=== PATIENT | female | born 1990 | race Caucasian/White ===

== ENCOUNTER 2020-12-26 14:43 | Emergency (ER) | payer OTHER ==
[2020-12-26] MEDS: Ibuprofen 200 MG Tab PO STA (14:58)
--- NOTE | 2020-12-26 15:21 | EDM.PDOC ---
ED HPI GENERAL MEDICAL PROBLEM - General Stated Complaint: right shoulder injury. Time Seen by Provider: 12/26/20 14:50 Source of Information: Reports: Patient History Limitations: Reports: No Limitations - History of Present Illness INITIAL COMMENTS - FREE TEXT/NARRATIVE: Patient comes emergency department today from home with complaints of right shoulder injury. This patient was drinking alcohol last night when she tried to get out of a [place] and fell landing on her right shoulder. She did not hit her head. There was no loss of consciousness. She has no head neck or back pain. She complains of severe pain to her right shoulder and distal clavicle. She does have some pain radiating down the right arm as well. No paresthesias. It is difficult for her to lift up her arm as it is quite painful. She denies any other injury to her right upper extremity. She has not taken anything for the pain prior to arrival. Right Shoulder Pain Score (Numeric/FACES): 9 - Related Data Allergies Allergy/AdvReac Type Severity Reaction Status Date / Time No Known Drug Allergies Allergy Cannot Verified 12/26/20 16:18 Remember Home Meds: Home Meds Levothyroxine Sodium [Tirosint] 125 mcg PO DAILY 12/26/20 [History] norethindrone ac-eth estradioL [Norethind-Eth Estrad 1-0.02 mg] 1 tab PO DAILY 12/26/20 [History] Past Medical History HEENT History: Reports: Impaired Vision Gastrointestinal History: Reports: None [employer]OR [employer] IMPRESSIONS History: Reports: Endocrine/Metabolic History: Reports: Hypothyroidism - Past Surgical History Head Surgeries/Procedures: Reports: None GI Surgical History: Reports: Appendectomy Dermatological Surgical History: Reports: None Social & Family History - Family History Cardiac: Reports: Other (See Below) Other Cardiac Family History: grandfather has von willebrand, sister had heart issues last year-racing heart. Respiratory: Reports: None GI: Reports: None - Caffeine Use Caffeine Use: Reports: Soda Other Caffeine Use: diet coke occasionally Review of Systems - Review of Systems Review Of Systems: Comprehensive ROS is negative, except as noted in HPI. ED EXAM, GENERAL - Physical Exam Exam: See Below Exam Limited By: No Limitations General Appearance: Alert, WD/WN, No Apparent Distress Respiratory/Chest: No Respiratory Distress Cardiovascular: Normal Peripheral Pulses Peripheral Pulses: 2+: Radial (L), Radial (R) Back Exam: Normal Inspection, Full Range of Motion, Other (Scapula on the right. There is no bruising swelling ecchymosis tenderness or bony deformity). No: CVA Tenderness (L), CVA Tenderness (R), Paraspinal Tenderness, Vertebral Tendern ess Extremities: Normal Capillary Refill. No: Normal Inspection (She has tenderness to the lateral right clavicle without over bony deformity. No swelling of the right shoulder. No swelling of the right shoulder. ARM and PRM is very painful for the patient. Unable to abduct and adduct due to pain. Rest of the arm is unremarkable and atraumatic. ), Normal Range of Motion Neurological: Alert, Oriented, Normal Cognition, No Motor/Sensory Deficits Psychiatric: Normal Affect, Normal Mood Skin Exam: Warm, Dry, Intact, Normal Color Course - Vital Signs Last Recorded V/S: Last Vital Signs Temp 98.4 F 12/26/20 15:00 Pulse 106 H 12/26/20 15:00 Resp 16 12/26/20 15:00 BP 121/91 H 12/26/20 15:00 Pulse Ox 96 12/26/20 15:00 - Orders/Labs/Meds Meds: Medications Discontinued Medications Generic Name Dose Route Start Last Admin Trade Name Freq PRN Reason Stop Dose Admin Ibuprofen 600 mg 12/26/20 14:50 12/26/20 14:58 Ibuprofen 200 Mg Tab PO 12/26/20 14:51 600 mg NOW STA Administration - Radiology Interpretation Free Text/Narrative:: X-ray of the right shoulder per radiology shows borderline widening of the acromial or clavicular interval. Finding is nonspecific can be seen with a low- grade AC injury of the setting of trauma no fracture in the shoulder girdle - Re-Assessments/Exams Free Text/Narrative Re-Assessment/Exam: 12/26/20 Ibuprofen given orally. Initially x-ray reviewed extemporaneously by myself shows questionable AC separation which is consistent with the pattern of where her pain is. I see no fracture of the clavicle scapula humerus or other bony abnormality. Radiological review to follow. I reviewed the x-ray with the patient and my concerns for an AC separation. We will treat her with a sling nonsteroidals and rice therapy. I will contact her if the radiologist sees something differently. Recheck with primary care in a week. Discharge instructions as below are explained to the patient she was comfortable with this plan and her questions were answered. Departure - Departure Time of Disposition: 15:36 Disposition: Home, Self-Care 01 Clinical Impression: AC separation Qualifiers: Encounter type: initial encounter Laterality: right Qualified Code(s): S43.101A - Unspecified dislocation of right acromioclavicular joint, initial encounter - Discharge Information Instructions: RICE Therapy for Routine Care of Injuries, [id number], How To Use a Sling, [id number], Acromioclavicular Separation Referrals: PCP,Not In Area [Primary Care Provider] - Forms: ED Department Discharge Additional Instructions: Tylenol and or Ibuprofen as needed for pain. RICE therapy to the shoulder. See discharge instructions. Sling to the right arm for comfort. May take off to shower. Make sure and take your arm out of the sling and do some range of motion to keep your shoulder loose. Return to the ED if new or worsening symptoms. I will contact you later if anything is different from the radiology report. Follow up with PCP in 1 week for recheck. Sepsis Event Note (ED) - Focused Exam Vital Signs: Vital Signs Temp Pulse Resp BP Pulse Ox 12/26/20 15:00 98.4 F 106 H 16 121/91 H 96
--- NOTE | 2020-12-26 17:01 | CR ---
[id number] RAD/RAD Shoulder Right 2V Min Exam: RAD Shoulder Right 2V Min Indication:FALL RIGHT SHOULDER PAIN, INCLUDE Y VIEW. FELL OUT OF Comparison: No prior imaging for comparison. Discussion/Impression: Borderline widening of the acromioclavicular interval. Finding is nonspecific but can be seen with low-grade acromioclavicular injury of the setting of trauma. Coracoclavicular interval is well-preserved. Glenohumeral articulation is normal. No fracture in the shoulder girdle. Kendall Sharif MD 12/26/20 [id number] Thank you for allowing us to participate in the care of your patient.
== END 2020-12-26 15:44 | disposition home or self-care (01) ==
LOC: VM.ED 14:43
DX: S43.101A Unspecified dislocation of right acromioclavicular joint, initial encounter (principal); E03.9 Hypothyroidism, unspecified; Z79.899 Other long term (current) drug therapy; W18.39XA Other fall on same level, initial encounter
CPT/HCPCS: 73030-RT; 99283-25; 99284; A9270-GY

== ENCOUNTER 2023-02-11 13:23 | Emergency (ER) | payer OTHER ==
[2023-02-11 14:41] LABS: CORONAVIRUS COVID-19 NAA NEGATIVE (NEGATIVE); INFLUENZA A NAA NEGATIVE (NEGATIVE); INFLUENZA B NAA NEGATIVE (NEGATIVE); RESPIRATORY SYNCYTIAL VIR NAA NEGATIVE (NEGATIVE)
[2023-02-11] MEDS ORDERED: Take Home: Doxycycline 100 MG Cap, 4 Cap Pack PO ONE (15:19)
[2023-02-11] MEDS: Take Home: Acetaminophen/Codeine 5 ML Soln 5 ML UD Cup, 2 Cup Pack PO ONE ×2 (15:25→21:46)
[2023-02-11] MEDS ORDERED: Take Home: Acetaminophen/Codeine 5 ML Soln 5 ML UD Cup, 2 Cup Pack PO ONE (15:36)
[2023-02-11] MEDS ORDERED: Take Home: Codeine/Promethazine 10-6.25 MG/5 ML Syrup 5 ML, 2 Cup Pack PO ONE (15:41)
== END 2023-02-11 15:51 | disposition home or self-care (01) ==
LOC: VM.ED 13:23
DX: J18.9 Pneumonia, unspecified organism (principal); E03.9 Hypothyroidism, unspecified; Z20.822 Contact with and (suspected) exposure to COVID-19; Z79.899 Other long term (current) drug therapy
CPT/HCPCS: 0241U; 71045; 93005; 99284; 99285; A9270-GY